=== PATIENT | female | born 1940 | race Caucasian/White ===

== ENCOUNTER → 2022-07-16 | Outpatient (CLI) | payer OTHER ==
[2022-07-16 07:39] LABS: Basophils # (auto) 0.1 10 ^3/uL (0-0.2); Basophils % (auto) 1.2 % (0.0-2.0); Eosinophils # (auto) 0.4 10 ^3/uL (0-0.8); Eosinophils % (auto) 5.1 % (0.0-7.0); Hematocrit 40.5 % (36.0-46.0); Hemoglobin 13.8 g/dL (12.2-16.2); Lymphocytes # (auto) 1.6 10 ^3/uL (0.4-5.4); Lymphocytes % (auto) 21.6 % (10.0-50.0); Mean Corpuscular Hemoglobin 33.4 pg (28.0-32.0); Mean Corpuscular Hgb Conc. 34.2 g/dL (32.0-36.0); Mean Corpuscular Volume 97.7 fL (80.0-100.0); Monocytes # (auto) 0.8 10 ^3/uL (0-1.3); Monocytes % (auto) 10.8 % (0.0-12.0); Neutrophils # (auto) 4.5 10 ^3/uL (1.6-8.6); Neutrophils % (auto) 61.3 % (37.0-80.0); Nucleated Red Blood Cells % 0.1 %; Red Blood Cells 4.15 10^6/uL (4.0-5.20); Red Cell Distribution Width 12.6 % (11.8-14.3); White Blood Cell 7.4 10^3/uL (4.4-10.8)
[2022-07-16 07:44] LABS: Urine Bacteria MANY /hpf (None Seen); Urine Blood 1+ /uL (Negative); Urine Mucus FEW (None Seen); Urine Specific Gravity 1.017 (1.001-1.035); Urine WBC 2417 /hpf (0 - 5); Urine WBC Clumps PRESENT /hpf (None Seen)
[2022-07-16 08:36] LABS: Potassium 4.5 mmol/L (3.5-5.1)
[2022-07-16 08:49] LABS: Albumin 3.6 g/dL (3.4-5.0); BUN/Creatinine Ratio 21.4 (10.0-20.0); Bilirubin, Total 0.4 mg/dL (0.2-1.0); Calcium 9.6 mg/dL (8.5-10.1); Total Protein 7.4 g/dL (6.4-8.2)
== END | disposition home or self-care (01) ==
LOC: LAB 07:18
PROVIDERS: ATTEND Internal Medicine
DX: Z29.9 Encounter for prophylactic measures, unspecified (principal); I70.0 Atherosclerosis of aorta; D69.2 Other nonthrombocytopenic purpura
CPT/HCPCS: 36415; 80053; 80061; 81001; 83036; 84439; 84443; 85025

== ENCOUNTER → 2022-09-23 | Outpatient (CLI) | payer OTHER ==
[2022-09-23 07:55] LABS: Urine Bacteria FEW /hpf (None Seen); Urine Blood Negative /uL (Negative); Urine Hyaline Cast FEW /lpf (0 - 2); Urine Specific Gravity 1.013 (1.001-1.035); Urine WBC 63 /hpf (0 - 5)
[2022-09-23 08:51] LABS: Free T4 (Free Thyroxine) 1.21 ng/dL (0.89-1.76)
[2022-09-23 08:52] LABS: Free T3 2.86 pg/mL (2.3-4.2)
== END | disposition home or self-care (01) ==
LOC: LAB 06:59
PROVIDERS: ATTEND Internal Medicine
DX: R94.6 Abnormal results of thyroid function studies (principal); R82.90 Unspecified abnormal findings in urine
CPT/HCPCS: 36415; 81001; 84439; 84443; 84481; 87086